=== PATIENT | female | born 2000 | race Two or more races ===

== ENCOUNTER 2024-06-30 09:02 | Outpatient (REF) | payer OTHER, SELFPAY ==
[2024-07-03 14:33] LABS: TS Negative Control Passed; TS Panel A 0; TS Panel B 0; TS Positive Control Passed; TSpotTB Negative (Negative)
== END 2024-06-30 09:03 | disposition home or self-care (01) ==
LOC: HO.HMGCLDS 09:02
PROVIDERS: Visit Provider Nurse Practitioner Family
DX: Z11.1 Encounter for screening for respiratory tuberculosis (principal)
CPT/HCPCS: 36415; 86481

== ENCOUNTER 2024-06-30 09:02 | Outpatient (AMB) | payer OTHER, SELFPAY ==
--- NOTE | 2024-06-30 09:38 | MHC.OFFWIV ---
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 [facility] Medical History (Updated 06/30/24 @ 10:12 by Francia Trotter NP) Encounter for screening for respiratory tuberculosis Social History Patient Tobacco Use Status: Never used Tobacco Review of Systems Const All systems reviewed & are unremarkable except as noted in HPI and below Physical Exam Vital Signs: Last Vital Signs Pulse 81 06/30/24 09:42 BP 110/80 06/30/24 09:42 Pulse Ox 99 06/30/24 09:42 Oxygen Delivery Method Room Air 06/30/24 09:42 BMI result Body Mass Index 28.3 Const General: cooperative, comfortable and no acute distress Orientation/consciousness: patient oriented x3 Resp Effort & Inspection: normal respiratory effort and able to speak in complete sentences Auscultation: clear to auscultation bilaterally Cardio Heart sounds: S1 normal heart sound present Neuro General: patient oriented x3 Assessment & Plan Assessment & Plan (1) Encounter for screening for respiratory tuberculosis: Code(s): Z11.1 - Encounter for screening for respiratory tuberculosis Plan: Ordered T-Spot Will call Patient with results when available. Orders: Orders T Spot TB Today Z11.1 - Encounter for screening for respiratory tuberculosis Coding Level of Care Code Est Pt Level 3 (44470) Diagnoses Encounter for screening for respiratory tuberculosis Z11.1 Time Spent (min) 15
[2024-06-30 09:42] VITALS: BP 110/80; PULSE 81; O2SAT 99; BMI 28.3
== END 2024-06-30 10:25 | disposition home or self-care (01) ==
PROVIDERS: Visit Provider Nurse Practitioner Family
DX: Z11.1 Encounter for screening for respiratory tuberculosis (principal)